=== PATIENT | female | born 1995 | race African-American/Black ===

== ENCOUNTER 2021-07-24 06:54 | Emergency (ER) | payer OTHER ==
[~2021-07-24] VITALS: Ht 160 cm; Wt 63.6 kg
[2021-07-24] MEDS ORDERED: ONDANSETRON ODT 4 MG TAB.RAPDIS. PO ONE (07:30)
[2021-07-24] MEDS ORDERED: IV NORMAL SALINE 1000ML BAG 1,000 ML IV ONE (07:30)
[2021-07-24 08:16] LABS: BILIRUBIN,URINE MODERATE (NEG); CLARITY,URINE HAZY; COLOR,URINE AMBER
[2021-07-24 08:17] LABS: NITRITE,URINE NEGATIVE (NEG); PROTEIN,URINE 30 mg/dL (NEG-TRACE)
[2021-07-24 08:19] LABS: RBC,URINE 0 /HPF (0-2)
[2021-07-24 08:20] LABS: BACTERIA,URINE FEW /HPF (0-FEW)
[2021-07-24 08:20] LABS: CALCIUM 8.8 mg/dL (8.5-10.1); CREATININE 0.6 mg/dL (0.6-1.0); GFR 145.1; POTASSIUM 3.1 mmol/L (3.5-5.1)
[2021-07-24 08:23] LABS: BASO % 1 % (0-3); EOS # 0.1 x10^3/uL (0.0-0.7); EOS % 2 % (0-3); HEMATOCRIT 40.4 % (36.0-47.0); LYMPH # 1.6 x10^3/uL (1.0-4.8); LYMPH % 26 % (24-48); MEAN CORPUSCULAR HEMOGLOBIN 28 pg (25-35); MEAN CORPUSCULAR HGB CONC 35 g/dL (31-37); MEAN CORPUSCULAR VOLUME 79 fL (79-100); MONO # 0.6 x10^3/uL (0.0-1.1); MONO % 10 % (0-9); NEUT # 3.8 x10^3/uL (1.8-7.7); NEUT % 62 % (31-73); PLATELET COUNT 305 x10^3/uL (140-400); RED BLOOD COUNT 5.11 x10^6/uL (3.50-5.40); RED CELL DISTRIBUTION WIDTH 15.1 % (11.5-14.5); WHITE BLOOD COUNT 6.1 x10^3/uL (4.0-11.0)
[2021-07-24 09:23] VITALS: BP 117/73
--- NOTE | 2021-07-24 09:32 | RAD ---
US OB <14 WKS +TV History: Emesis. . Comparison: None. Technique: Sonographic examination of the pelvis was performed with transabdominal technique. Findings: The uterus is early gravid, measuring 17.1 x 6.2 x 13.7 cm. The uterus contains a single gestational sac with normal shape. A pole is identified with crown -rump length measuring 4.32 cm, corresponding to a gestational age of 11 weeks 1 day. There is no evidence of perigestational hemorrhage. The heart rate measures 160 bpm. The right ovary is obscured by bowel gas. The left ovary is normal in size and echogenicity, measuring 2.7 x 1.6 x 2.3 cm. There is no evidence of adnexal mass or free fluid. Impression: 1. No evidence of acute pelvic pathology. 2. Single live intrauterine gestation with crown-rump length corresponding to a gestational age of 1 1 weeks 1 day. Electronically signed by: Jeffrey Pineda MD (07/24/2021 9:29 AM) [id number]
--- NOTE | 2021-07-24 09:49 | PHYS DOC ---
Past Medical History Past Surgical History: No Surgical History Smoking Status: Never Smoker Alcohol Use: None Adult General Chief Complaint Chief Complaint: NAUSEA/VOMITING/DIARRHEA HPI HPI Patient is a 25 year old female with severe nausea and vomiting for the last 24 hours. Patient states that she is currently about 3 months . She has not had any abdominal cramps, vaginal bleeding, burning with urination or blood in the urine. She has had problems with hyperemesis for the last few weeks. No fever, shortness of breath, chest pain or recent trauma. Review of Systems Review of Systems Constitutional: Denies fever Eyes: Denies change in visual acuity or eye pain HENT: Denies sore throat Respiratory: Denies shortness of breath Cardiovascular: Denies chest pain GI: Denies abd pain : Denies dysuria Musculoskeletal: Denies back or extremity injury Integument: Denies rash or skin lesions Neurologic: Denies headache, focal weakness or sensory changes All other systems were reviewed and found to be within normal limits, except as documented in this note. Current Medications Current Medications Current Medications Medications (Trade) Dose Ordered Sig/Candi Start Time Stop Time Status Last Admin Dose Admin Ondansetron HCl (Zofran Odt) 4 mg 1X ONCE 07/24/21 07:30 07/24/21 07:31 DC 07/24/21 07:51 4 MG Sodium Chloride 1,000 ml @ 1,000 mls/hr 1X ONCE 07/24/21 07:30 07/24/21 08:29 DC 07/24/21 07:52 1,000 MLS/HR Allergies Allergies Allergies Coded Allergies Type Severity Reaction Last Updated Verified No Known Drug Allergies 07/24/21 No Physical Exam Physical Exam Constitutional: Well developed, well nourished, no acute distress, non-toxic appearance. HENT: Normocephalic, atraumatic, bilateral external ears normal, mucosa moist, nose normal. Eyes: EOMI, conjunctiva normal, no discharge. Neck: Normal range of motion, supple, no stridor, no meningeal signs. Cardiovascular: Regular rate and rhythm Lungs & Thorax: Bilateral breath sounds clear to auscultation Abdomen: Soft, no tenderness or obvious masses Skin: Warm, dry, no erythema, no rash. Extremities: No tenderness, no cyanosis, no clubbing, ROM intact, no edema. Neurologic: Alert and oriented, normal motor function, normal sensory function, no focal deficits noted. Psychologic: Affect normal, judgement normal, mood normal. Current Patient Data Vital Signs Vital Signs Date Time Temp Pulse Resp B/P (MAP) Pulse Ox O2 Delivery O2 Flow Rate FiO2 07/24/21 06:57 98.6 96 14 135/74 (94) 99 98.6 Lab Values Laboratory Tests Test 07/24/21 07:14 07/24/21 07:21 07/24/21 07:50 Urine Collection Type Unknown Urine Color Niharika Urine Clarity Hazy Urine pH 6.0 (<5.0-8.0) Urine Specific [place] >=1.030 (1.000-1.030) Urine Protein 30 mg/dL (NEG-TRACE) Urine Glucose (UA) Negative mg/dL (NEG) Urine Ketones (Stick) 40 mg/dL (NEG) Urine Blood Negative (NEG) Urine Nitrite Negative (NEG) Urine Bilirubin Moderate (NEG) Urine Urobilinogen Dipstick 1.0 mg/dL (0.2 mg/dL) Urine Leukocyte Esterase Negative (NEG) Urine RBC 0 /HPF (0-2) Urine WBC 11-20 /HPF (0-4) Urine Squamous Epithelial Cells Occ /LPF Urine Bacteria Few /HPF (0-FEW) Urine Mucus Mod /LPF POC Urine HCG, Qualitative Hcg negative (Negative) White Blood Count 6.1 x10^3/uL (4.0-11.0) Red Blood Count 5.11 x10^6/uL (3.50-5.40) Hemoglobin 14.0 g/dL (12.0-15.5) Hematocrit 40.4 % (36.0-47.0) Mean Corpuscular Volume 79 fL (79-100) Mean Corpuscular Hemoglobin 28 pg (25-35) Mean Corpuscular Hemoglobin Concent 35 g/dL (31-37) Red Cell Distribution Width 15.1 % (11.5-14.5) H Platelet Count 305 x10^3/uL (140-400) Neutrophils (%) (Auto) 62 % (31-73) Lymphocytes (%) (Auto) 26 % (24-48) Monocytes (%) (Auto) 10 % (0-9) H Eosinophils (%) (Auto) 2 % (0-3) Basophils (%) (Auto) 1 % (0-3) Neutrophils # (Auto) 3.8 x10^3/uL (1.8-7.7) Lymphocytes # (Auto) 1.6 x10^3/uL (1.0-4.8) Monocytes # (Auto) 0.6 x10^3/uL (0.0-1.1) Eosinophils # (Auto) 0.1 x10^3/uL (0.0-0.7) Basophils # (Auto) 0.0 x10^3/uL (0.0-0.2) Maternal Serum HCG Beta Subunit [id number] mIU/mL (0-5) H Sodium Level 136 mmol/L (136-145) Potassium Level 3.1 mmol/L (3.5-5.1) L Chloride Level 101 mmol/L (98-107) Carbon Dioxide Level 25 mmol/L (21-32) Anion Gap 10 (6-14) Blood Urea Nitrogen 8 mg/dL (7-20) Creatinine 0.6 mg/dL (0.6-1.0) Estimated GFR (Cockcroft-Gault) 145.1 Glucose Level 94 mg/dL (70-99) Calcium Level 8.8 mg/dL (8.5-10.1) Laboratory Tests 07/24/21 07:50 Laboratory Tests 07/24/21 07:50 EKG EKG [] Radiology/Procedures Radiology/Procedures [] Impressions: PATIENT: CLAUDIA BROOKS MACCOUNT: [id number]#: [id number] : 1995 LOCATION: ER AGE: 25 SEX: F EXAM STATUS: REG ER ORD. PHYSICIAN: MAYKEL IBRAHIM MD REASON: emesis PROCEDURE: OB < 14 WKS US OB <14 WKS +TV History: Emesis. . Comparison: None. Technique: Sonographic examination of the pelvis was performed with transabdominal technique. Findings: The uterus is early gravid, measuring 17.1 x 6.2 x 13.7 cm. The uterus contains a single gestational sac with normal shape. A pole is identified with crown-rump length measuring 4.32 cm, corresponding to a gestational age of 11 weeks 1 day. There is no evidence of perigestational hemorrhage. The heart rate measures 160 bpm. The right ovary is obscured by bowel gas. The left ovary is normal in size and echogenicity, measuring 2.7 x 1.6 x 2.3 cm. There is no evidence of adnexal mass or free fluid. Impression: 1. No evidence of acute pelvic pathology. 2. Single live intrauterine gestation with crown-rump length corresponding to a gestational age of 11 weeks 1 day. Electronically signed by: Jeffrey Pineda MD (07/24/2021 9:29 AM) [id number] DICTATED and SIGNED BY: JEFFREY PINEDA MD DATE: 07/24/21 [id number] 0 Course & Med Decision Making Course & Med Decision Making Pertinent Labs and Imaging studies reviewed. (See chart for details) [] This is a 25-year-old female with hyperemesis during her first trimester. Initially her urine qualitative test was negative so we subsequently had ordered a quantitative beta hCG and an ultrasound. The ultrasound demonstrates a live intrauterine gestation at about 11 weeks. Quantitative hCG corresponds accordingly. Patient was given normal saline and Zofran with improvement in symptoms. 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 Dragon Disclaimer Dragon Disclaimer This electronic medical record was generated, in whole or in part, using a voice recognition dictation system. Departure Departure Impression: Primary Impression: Hyperemesis Disposition: HOME / SELF CARE / HOMELESS Condition: STABLE Referrals: NO PCP (PCP) Patient Instructions: Diet - Hyperemesis Gravidarum, Hyperemesis Gravidarum MAYKEL IBRAHIM MD Jul 24, 2021 09:49
== END 2021-07-24 10:08 | disposition home or self-care (01) ==
LOC: ER 06:54
DX: O21.0 Mild hyperemesis gravidarum (principal); Z3A.11 11 weeks gestation of pregnancy
CPT/HCPCS: 36415; 76801; 80048; 81001; 81025; 84702; 85025; 87086; 96360; 96361; 99285; J7030